=== PATIENT | male | born 1995 | race Two or more races ===

== ENCOUNTER 2017-11-14 17:57 | Emergency (ER) | payer SELFPAY ==
[2017-11-14 18:08] VITALS: TEMP 97.8
--- NOTE | 2017-11-14 18:36 | ED PDOC ---
HPI: Psych/Substance Abuse Time Seen by Provider: 11/14/17 18:27 Chief Complaint (Nursing): Alcohol Ingestion Chief Complaint (Provider): Alcohol abuse History Per: Patient History/Exam Limitations: no limitations Onset/Duration Of Symptoms: Days (today) Additional Complaint(s): Pt. states he drank a few beers, denies any drugs, injury, fall, pain. Pt. states he was hanging out on the street and police brought him to the ER when they saw him. Pt. denies suicidal or homicidal ideation. Past Medical History Reviewed: Nursing Documentation, Vital Signs Vital Signs: Last Vital Signs Temp 97.8 F 11/14/17 18:07 Pulse 128 H 11/14/17 18:07 Resp 22 11/14/17 18:07 BP 152/114 H 11/14/17 18:07 Pulse Ox 95 11/14/17 18:07 - Medical History PMH: No Chronic Diseases - Surgical History Surgical History: No Surg Hx - Family History Family History: States: Unknown Family Hx - Allergies Allergies/Adverse Reactions: Allergies Allergy/AdvReac Type Severity Reaction Status Date / Time Unobtainable Allergy Verified 11/14/17 18:07 Review of Systems ROS Statement: Except As Marked, All Systems Reviewed And Found Negative Physical Exam - Reviewed Nursing Documentation Reviewed: Yes Vital Signs Reviewed: Yes - Physical Exam Appears: Positive for: Non-toxic, No Acute Distress Head Exam: Positive for: ATRAUMATIC, NORMAL INSPECTION, NORMOCEPHALIC Skin: Positive for: Normal Color, Warm, DRY Eye Exam: Positive for: EOMI, Normal appearance, PERRL ENT: Positive for: Normal ENT Inspection Neck: Positive for: Normal, Painless ROM Cardiovascular/Chest: Positive for: Regular Rate, Rhythm Respiratory: Positive for: CNT, Normal Breath Sounds Gastrointestinal/Abdominal: Positive for: Normal Exam, Soft Back: Positive for: Normal Inspection. Negative for: L CVA Tenderness, R CVA Tenderness Extremity: Positive for: Normal ROM. Negative for: Tenderness, Pedal Edema Neurologic/Psych: Positive for: Alert, Oriented - Laboratory Results Result Diagrams: 11/14/17 18:50 11/14/17 18:50 Interpretation Of Abn Labs: 268 etoh - ECG ECG: Positive for: Interpreted By Me, Viewed By Me ECG Rhythm: Positive for: Normal QRS, Sinus Rhythm O2 Sat by Pulse Oximetry: 95 Pulse Ox Interpretation: Normal - CT Scan/US ct Other Rad Studies (CT/US): Read By Radiologist Other Rad Interpretation: no acute - Progress ED Course And Treament: 1835: Pt. now aggressive and threat to self and staff. Acute psychosis likely from etoh. Will restrain and give haldol with ativan. 1900: Dr. Amaro to take over care. Disposition - Clinical Impression Clinical Impression: Alcohol abuse - Patient ED Disposition Is Patient to be Admitted: Transfer of Care - Disposition Disposition Time: 18:39 Condition: STABLE Patient Signed Over To: Rm Amaro
[2017-11-14 19:19] LABS: BASO % 0.5 % (0.0-2.0); EOS % 0.1 % (0.0-4.0); HEMOGLOBIN 15.3 g/dL (12.0-18.0); LYMPH # 1.6 K/uL (1.0-4.3); MEAN CELL VOLUME 91.2 fl (80.0-94.0); MEAN CORPUSCULAR HEMOGLOBIN 32.2 pg (27.0-31.0); MEAN CORPUSCULAR HGB CONC 35.3 g/dL (33.0-37.0); MEAN PLATELET VOLUME 6.7 fl (7.2-11.7); MONO # 0.2 K/uL (0.0-0.8); MONO % 4.2 % (0.0-10.0); NEUT # 3.9 K/uL (1.8-7.0); NEUT % 67.2 % (50.0-75.0); RBC 4.75 Mil/uL (4.40-5.90); RED CELL DISTRIBUTION WIDTH 12.7 % (11.5-14.5); WHITE BLOOD COUNT 5.9 K/uL (4.8-10.8)
[2017-11-14 19:27] LABS: ALB/GLOB RATIO 1.3 (1.0-2.1); ALBUMIN 4.6 g/dL (3.5-5.0); ALT/SGPT 177 U/L (21-72); AST/SGOT 101 U/L (17-59); BLOOD UREA NITROGEN 6 mg/dl (9-20); GFR AFRICAN-AMERICAN > 60; GFR NON-AFRICAN AMERICAN > 60
--- NOTE | 2017-11-14 20:28 | CT ---
EXAM: CT Head Without Intravenous Contrast CLINICAL HISTORY: 22 years old, male; Pain; Headache TECHNIQUE: Axial computed tomography images of the head/brain without intravenous contrast. All CT scans at this facility use one or more dose reduction techniques, viz.: automated exposure control; ma/kV adjustment per patient size (including targeted exams where dose is matched to indication; i.e. head); or iterative reconstruction technique. Coronal and sagittal reformatted images were created and reviewed. COMPARISON: No relevant prior studies available. FINDINGS: Brain: Minimal atrophy. No intracranial hemorrhage. No mass. No definite edema. Ventricles: No hydrocephalus. Bones/joints: No acute fracture. Soft tissues: Unremarkable. Sinuses: Mild mucosal thickening of left maxillary sinus. Scattered minimal mucosal thickening of remaining sinuses. Mastoid air cells: No mastoid effusion. Orbits: Unremarkable as visualized. IMPRESSION: 1. No definite acute intracranial abnormality. 2. Incidental/non-acute findings are described above.
[2017-11-14 22:23] VITALS: RESP 18
--- NOTE | 2017-11-14 23:51 | ED PDOC ---
- Laboratory Results Result Diagrams: 11/14/17 18:50 11/14/17 18:50 - ECG O2 Sat by Pulse Oximetry: 95 Medical Decision Making Medical Decision Makin Patient signed out to the provider from Dr. Ellis Alicia pending clinical sobriety. 0530 Upon re-evaluation patient is awake, alert, and oriented x3. Patient walks with a steady gait and is clinically sober. Patient is stable for discharge home. Dx: alcohol abuse ~ Scribe Attestation: Documented by Tamela Wall, acting as a scribe for Rm Amaro MD. Provider Scribe Attestation: All medical record entries made by the Scribe were at my direction and personally dictated by me. I have reviewed the chart and agree that the record accurately reflects my personal performance of the history, physical exam, medical decision making, and the department course for this patient. I have also personally directed, reviewed, and agree with the discharge instructions and disposition. Disposition - Clinical Impression Clinical Impression: Alcohol abuse - POA Present On Arrival: None - Disposition Disposition: Routine/Home Disposition Time: 05:30 Condition: STABLE Instructions: Alcohol Abuse and Alcoholism (DC) Forms: [employer] (Albanian)
[2017-11-15 06:03] VITALS: BP 135/71; PULSE 85
--- NOTE | 2017-11-15 08:23 | CARD ---
APPROVED REPORT EKG Measurement Heart [id number] <Conclusion> Normal sinus rhythm Cannot rule out Inferior infarct, age undetermined Abnormal ECG
[2017-11-16 06:02] VITALS: O2SAT 95
== END 2017-11-15 06:03 | disposition home or self-care (01) ==
LOC: H.ER 17:57
DX: F10.10 Alcohol abuse, uncomplicated (principal); F10.951 Alcohol use, unspecified with alcohol-induced psychotic disorder with hallucinations
CPT/HCPCS: 70450; 80053; 82948; 84484; 85025; 93005; 96372; 99285; G0480; J1630; J2060